=== PATIENT | female | born 1940 | race Caucasian/White ===

== ENCOUNTER 2016-07-01 12:27 | Day surgery (SDC) | payer MEDICARE, BC ==
[~2016-07-01] VITALS: Ht 162.7 cm; Wt 72.7 kg
[2016-07-01] VITALS (8 sets, daily range): BP systolic 135–180; BP diastolic 57–78; PULSE 53–554; TEMP 97.9
[~2016-07-01 12:27] MED LIST: AMLODIPINE5 MG PO; ASPIRIN 32325 MG/TAB PO; ASPIRIN E.C. 8181 MG PO; CALCIUM 600MG+D1 TAB PO; CARDENE 20MG CA20 M1 PO; CYANOCOBAL1000 MCG/M IM; FLAGYL 250250 MG/TAB PO; FLONASE NASAL S16 GM NS; FOLIC ACID1 MG PO; FOSAMAX 35MG35 MG PO; FOSAMAX70 MG PO; GABAPENTIN300 MG PO; IMODIUM 2MG CAPS2 MG PO; LEVAQUIN 5500 MG/TA1 PO; LISINOPRIL10 MG PO; MAALOX1 TAB PO; METOPROLOL50 MG PO; NIACIN500 M3 PO; NIASPAN 500MG500 MG PO; NITROSTAT0.4 MG/TAB SL; NORCO 325 MG-51 TAB PO; OMEGA 31000 MG PO; OMEPRAZOLE D/R20 MG PO; PLAVIX 75MG TAB75 MG PO; PRAVACHOL 40MG40 MG PO; PRAVACHOL40 MG PO; QUESTRAN4 GM/9 GM PO; RANITIDINE75 MG PO; TYLENOL 500MG500 MG PO; VICODIN 5/5001 UDTAB PO; ZANTAC 150MG T150 MG PO; ZYRTEC10 MG PO; [UNRECOGNIZED DRUG - OTHER] NS; [UNRECOGNIZED DRUG - OTHER] PO
[2016-07-01 13:11] LABS: HEMOGLOBIN 15.9 g/dl (12.5-16.0); MEAN CELL VOLUME 99 fl (80.0-100.0); MEAN CORPUSCULAR HEMOGLOBIN 34 pg (27.0-31.0); MEAN CORPUSCULAR HGB CONC 35 g/dl (33.0-37.0); MEAN PLATELET VOLUME 10.1 fl (7.4-10.4); PLATELET COUNT 185 K/mm3 (130-400); RED BLOOD COUNT 4.64 M/mm3 (4.10-5.30); REDCELL DISTRIBUTION WIDTH-CV 13.2 % (11.5-14.5); WHITE BLOOD COUNT 5.7 K/mm3 (4.8-10.8)
[2016-07-01] MEDS ORDERED: BYSTOLIC10 MG PO (13:13)
[2016-07-01] MEDS ORDERED: ZESTRIL30 MG PO (13:14)
[2016-07-01] MEDS ORDERED: FOLIC ACID 11 MG/TA1 PO (13:15)
[2016-07-01] MEDS ORDERED: NEURONTIN300 MG/CAP PO (13:17)
[2016-07-01] MEDS ORDERED: NITROSTAT0.4 MG/TAB SL (13:19)
[2016-07-01] MEDS ORDERED: CATAPRES 0.1MG0.1 MG PO (13:21)
[2016-07-01] MEDS ORDERED: B-121000 MCG PO (13:24)
[2016-07-01] MEDS ORDERED: PROBIOTIC FORMU1 CAP PO (13:24)
[2016-07-01] MEDS ORDERED: VITAMIND3 5000 PO (13:27)
[2016-07-01] MEDS ORDERED: IMODIUM 2MG CAPS2 MG PO (13:27)
[2016-07-01 13:52] LABS: INR 1.1 (0.8-3.0); PROTHROMBIN TIME 12.3 SECONDS (9.7-12.8)
[2016-07-01 13:57] LABS: CALCIUM 10.3 mg/dL (8.4-10.2); CREATININE, serum 0.82 mg/dL (0.52-1.25); POTASSIUM 4.4 mmol/L (3.4-5.0)
== END 2016-07-01 18:40 | disposition home or self-care (01) ==
LOC: COL.CAR 12:27
PROVIDERS: Internal Medicine Interventional Cardiology
DX: I25.119 Atherosclerotic heart disease of native coronary artery with unspecified angina pectoris (principal); I44.0 Atrioventricular block, first degree; R06.02 Shortness of breath; I08.0 Rheumatic disorders of both mitral and aortic valves; I10 Essential (primary) hypertension; Z79.01 Long term (current) use of anticoagulants; Z95.1 Presence of aortocoronary bypass graft; Z95.5 Presence of coronary angioplasty implant and graft; Z87.891 Personal history of nicotine dependence
CPT/HCPCS: C1760; J2250; J3010; Q9967

== ENCOUNTER → 2017-02-03 | Outpatient (CLI) | payer MEDICARE, BC ==
[~2017-02-03] MED LIST changes: +B-121000 MCG PO; +BYSTOLIC10 MG PO; +CATAPRES 0.1MG0.1 MG PO; +FOLIC ACID 11 MG/TA1 PO; +NEURONTIN300 MG/CAP PO; +PROBIOTIC FORMU1 CAP PO; +VITAMIND3 5000 PO; +ZESTRIL30 MG PO
== END ==
LOC: MC.RAD 09:50
DX: Z12.31 Encounter for screening mammogram for malignant neoplasm of breast (principal); Z98.82 Breast implant status

== ENCOUNTER 2018-01-05 05:58 | Inpatient (IN) | payer MEDICARE, BC ==
[~2018-01-05] VITALS: Ht 162.6 cm; Wt 64.9 kg
[~2018-01-05 05:58] MED LIST changes: +LIPITOR 40MG TA40 MG PO; +LOPRESSOR 225 MG/TAB PO; +OMEGA-3 1000 MG1 CAP PO; +RANEXA 500MG T500 MG PO; +XARELTO20 MG PO
[2018-01-05 06:28] LABS: BASO % 0.2 % (0.0-2.0); EOS % 0.2 % (0-4.0); GRAN # 4.3 (1.4-6.5); HEMATOCRIT 39.1 % (37.0-47.0); HEMOGLOBIN 12.7 g/dl (12.5-16.0); LYMPH # 0.8 (1.2-3.4); LYMPH % 14.8 % (20.0-51.0); MEAN CELL VOLUME 111 fl (80.0-100.0); MEAN CORPUSCULAR HEMOGLOBIN 36 pg (27.0-31.0); MEAN CORPUSCULAR HGB CONC 33 g/dl (33.0-37.0); MEAN PLATELET VOLUME 11.8 fl (7.4-10.4); MONO # 0.4 (0.1-0.6); MONO % 7.3 % (1.7-9.3); PLATELET COUNT 112 K/mm3 (130-400); RED BLOOD COUNT 3.53 M/mm3 (4.10-5.30)
[2018-01-05 06:38] LABS: BILIRUBIN,TOTAL 0.8 mg/dL (0.0-1.0); CALCIUM 8.8 mg/dL (8.4-10.2); CREATININE, serum 0.64 mg/dL (0.52-1.25); POTASSIUM 3.4 mmol/L (3.4-5.0); TOTAL PROTEIN 7.8 gm/dL (6.4-8.2)
[2018-01-05 06:55] LABS: TROPONIN-I 0.071 ng/mL (0.000-0.034)
[2018-01-05] MEDS ORDERED: PRAVACHOL 20MG20 MG PO (06:55)
[2018-01-05] MEDS ORDERED: PRINIVIL10 MG PO (06:55)
[2018-01-05] MEDS ORDERED: PROAIR HFA0.09 MG/AC IH (06:56)
[2018-01-05] MEDS ORDERED: B-121000 MCG PO (06:56)
[2018-01-05] MEDS ORDERED: STIOLTO RESPIMAT4 GM IH (06:56)
[2018-01-05] MEDS ORDERED: TYLENOL 325MG325 MG PO (11:09)
[2018-01-05 11:41] VITALS: BP 142/71; PULSE 101; TEMP 98.5
[2018-01-05 15:14] LABS: INR 1.1 (0.8-3.0); PROTHROMBIN TIME 12.8 SECONDS (9.7-12.8)
[2018-01-05 15:16] LABS: PARTIAL THROMBOPLASTIN TIME 34.1 SECONDS (26.0-37.0)
== END 2018-01-05 16:39 | disposition short-term general hospital (02) | DRG 280 ==
LOC: COL.ER 05:58 → MEDICAL 07:24
PROVIDERS: Emergency Medicine; Hospitalist
DX: I21.4 Non-ST elevation (NSTEMI) myocardial infarction (principal); J96.21 Acute and chronic respiratory failure with hypoxia; I50.33 Acute on chronic diastolic (congestive) heart failure; I11.0 Hypertensive heart disease with heart failure; I35.0 Nonrheumatic aortic (valve) stenosis; I25.10 Atherosclerotic heart disease of native coronary artery without angina pectoris; Z95.1 Presence of aortocoronary bypass graft; Z95.5 Presence of coronary angioplasty implant and graft; I48.0 Paroxysmal atrial fibrillation; Z86.73 Personal history of transient ischemic attack (TIA), and cerebral infarction without residual deficits; E78.5 Hyperlipidemia, unspecified; Z87.891 Personal history of nicotine dependence; G62.9 Polyneuropathy, unspecified
CPT/HCPCS: 99222-AI; J1644; J1940

== ENCOUNTER → 2018-01-19 | Outpatient (CLI) | payer MEDICARE, BC ==
[~2018-01-19] MED LIST changes: +PRAVACHOL 20MG20 MG PO; +PRINIVIL10 MG PO; +PROAIR HFA0.09 MG/AC IH; +STIOLTO RESPIMAT4 GM IH; +TYLENOL 325MG325 MG PO
== END ==
LOC: COL.RAD 12:36
DX: R93.2 Abnormal findings on diagnostic imaging of liver and biliary tract (principal); R59.0 Localized enlarged lymph nodes; Z90.710 Acquired absence of both cervix and uterus
CPT/HCPCS: Q9967

== ENCOUNTER 2018-05-21 10:14 | Day surgery (SDC) | payer MEDICARE, BC ==
[2018-05-21] VITALS (7 sets, daily range): BP systolic 113–146; BP diastolic 57–77; PULSE 62–78
[~2018-05-21] VITALS: Ht 161.3 cm; Wt 60.0 kg
[~2018-05-21 10:14] MED LIST changes: +K-DUR20 MEQ PO; +LASIX 20MG TABL20 MG PO
[2018-05-21] MEDS ORDERED: XARELTO20 MG PO (10:50)
[2018-05-21] MEDS ORDERED: TENORMIN 2525 MG/TAB PO (10:51)
[2018-05-21] MEDS ORDERED: ZANTAC 7575 MG PO (10:52)
[2018-05-21] MEDS ORDERED: ZOFRAN 4MG T4 MG/TAB PO (10:56)
[2018-05-21 11:37] LABS: POTASSIUM 4.4 mmol/L (3.4-5.0)
[2018-05-21 11:43] LABS: INR 2.7 (0.8-3.0); PROTHROMBIN TIME 30.9 SECONDS (9.7-12.8)
[2018-05-21 12:12] LABS: THYROID STIMULATING HORMONE 1.48 uIU/mL (0.465-4.680)
--- NOTE | 2018-05-21 13:45 | NUR ---
PT IN ROOM 12 POST CARDIOVERSION WITH [facility]. ALL VITALS NOW STABLE, BP PREVIOUSLY LOW. CURRENTLY SUCKING ON ICE CHIPS.PT RESTING IN BED AT THIS TIME UNTIL DISCHARGE.
[2018-05-21] MEDS ORDERED: PACERONE400 MG PO (14:05)
--- NOTE | 2018-05-21 14:45 | NUR ---
PT VSS AND [id number] POST CARDIOVERSION WITH [facility]. TOLERATING FLUIDS PO WITHOUT ISSUE. IV REMOVED FROM RIGHT WRIST. DISCHARGE INSTRUCTIONS REVIEWED AND SIGNED. PT WHEELED OUT SAFELY VIA WHEELCHAIR WHERE WAS PRESENT RIGGER HELPER.
== END 2018-05-21 14:45 | disposition home or self-care (01) ==
LOC: COL.CAR 10:14
PROVIDERS: Internal Medicine Interventional Cardiology
DX: I48.91 Unspecified atrial fibrillation (principal); I25.10 Atherosclerotic heart disease of native coronary artery without angina pectoris; C22.9 Malignant neoplasm of liver, not specified as primary or secondary; I73.9 Peripheral vascular disease, unspecified; I25.2 Old myocardial infarction; I11.0 Hypertensive heart disease with heart failure; I50.9 Heart failure, unspecified; J44.9 Chronic obstructive pulmonary disease, unspecified; K75.9 Inflammatory liver disease, unspecified; I08.1 Rheumatic disorders of both mitral and tricuspid valves; Z79.02 Long term (current) use of antithrombotics/antiplatelets; Z79.01 Long term (current) use of anticoagulants; Z79.51 Long term (current) use of inhaled steroids; Z90.710 Acquired absence of both cervix and uterus; Z95.1 Presence of aortocoronary bypass graft; Z98.61 Coronary angioplasty status; Z87.891 Personal history of nicotine dependence; Z86.73 Personal history of transient ischemic attack (TIA), and cerebral infarction without residual deficits; Z85.828 Personal history of other malignant neoplasm of skin; Z82.49 Family history of ischemic heart disease and other diseases of the circulatory system
CPT/HCPCS: J2704; J7030

== ENCOUNTER → 2018-06-23 | Outpatient (CLI) | payer MEDICARE, BC ==
[~2018-06-23] MED LIST changes: +PACERONE400 MG PO; +TENORMIN 2525 MG/TAB PO; +ZANTAC 7575 MG PO; +ZOFRAN 4MG T4 MG/TAB PO
== END ==
LOC: MC.RAD 08:41
DX: Z12.31 Encounter for screening mammogram for malignant neoplasm of breast (principal)

== ENCOUNTER → 2018-07-13 | Outpatient (CLI) | payer MEDICARE, BC | LOC: COL.RAD 08:04 | DX: C22.0 Liver cell carcinoma (principal); I82.0 Budd-Chiari syndrome; I81 Portal vein thrombosis; K80.20 Calculus of gallbladder without cholecystitis without obstruction; K82.8 Other specified diseases of gallbladder; Z92.3 Personal history of irradiation | CPT/HCPCS: A9585 ==

== ENCOUNTER 2018-09-01 14:07 | Emergency (ER) | payer MEDICARE, BC ==
[~2018-09-01] VITALS: Ht 162.6 cm; Wt 58.6 kg
[2018-09-01 14:41] VITALS: BP 120/59; PULSE 70; TEMP 96.8
== END 2018-09-01 18:25 | disposition home or self-care (01) ==
LOC: COL.ER 14:07
DX: R04.0 Epistaxis (principal); E78.5 Hyperlipidemia, unspecified; I10 Essential (primary) hypertension; I48.91 Unspecified atrial fibrillation; I25.10 Atherosclerotic heart disease of native coronary artery without angina pectoris; Z86.73 Personal history of transient ischemic attack (TIA), and cerebral infarction without residual deficits

== ENCOUNTER 2018-09-13 21:20 | Inpatient (IN) | payer MEDICARE, BC ==
[~2018-09-13] VITALS: Ht 165.1 cm; Wt 63.6 kg
[2018-09-14] VITALS (7 sets, daily range): BP systolic 95–130; BP diastolic 38–41; PULSE 67–87; TEMP 97.4–98.2
[2018-09-14] MEDS ORDERED: TYLENOL 500MG500 MG PO (00:43)
[2018-09-14] MEDS ORDERED: PRAVACHOL 40MG40 MG PO (00:46)
--- NOTE | 2018-09-14 01:00 | NUR ---
Transferred medical floor from [facility] ER via EMS- dx; AMS, syncope, increased troponins, alert/partially oriented, just confused as to year?, bed alarm on- understands cannot get up without assistance- Up to bathroom with nurses help- did well, steady on feet, IV fluids of NS at 75cc/hr, Elly TIGHT BARREL INSPECTOR writing orders, unable to get an accurate medication list from home- pt does not know dosages, Elly put in for pharmacy to get an accurate list-- pt states having back pain, will give Tylenol when order is put in by Elly
[2018-09-14] MEDS ORDERED: NORCO 325 MG-51 TAB PO (01:14)
[2018-09-14] MEDS ORDERED: CORDARONE200 MG/TAB PO (01:14)
--- NOTE | 2018-09-14 02:00 | NUR ---
Elly OLIVAREZ called with Troponin of 0.071- she talked with the public relations specialist and orders for NPO at this time.
--- NOTE | 2018-09-14 04:55 | NUR ---
Has been sleeping fairly well since Tylenol was given earlier, Ok to DC SCD,s per Elly OIL TANK CAR CLEANER since pt on Xerelto and Plavix- NPO per cardiology- Denies chest pain/SOB, oriented, forgetful at times -
[2018-09-14 06:21] LABS: MEAN CELL VOLUME 113 fl (80.0-100.0); MEAN CORPUSCULAR HGB CONC 32 g/dl (33.0-37.0); MEAN PLATELET VOLUME 10.6 fl (7.4-10.4); PLATELET COUNT 77 K/mm3 (130-400); RED BLOOD COUNT 2.06 M/mm3 (4.10-5.30); REDCELL DISTRIBUTION WIDTH-CV 16.8 % (11.5-14.5)
[2018-09-14 06:33] LABS: ALBUMIN 2.7 gm/dL (3.5-5.0); BILIRUBIN,TOTAL 0.5 mg/dL (0.0-1.0); CALCIUM 7.9 mg/dL (8.4-10.2); CREATININE, serum 0.85 (0.52-1.25); POTASSIUM 4.2 mmol/L (3.4-5.0); TOTAL PROTEIN 5.7 gm/dL (6.4-8.2)
[2018-09-14 06:35] LABS: HEMATOCRIT 23.3 % (37.0-47.0); HEMOGLOBIN 7.4 g/dl (12.5-16.0); MEAN CORPUSCULAR HEMOGLOBIN 36 pg (27.0-31.0)
[2018-09-14 06:50] LABS: TROPONIN-I 6 HR POST INITIAL 0.066 ng/mL (0.000-0.034)
--- NOTE | 2018-09-14 07:30 | NUR ---
PATIENT IS ORIENTED X2 BUT DISPLAYS OCCATIONAL FORGETFULNESS AND NEEDS REMINDING OF PREVIOUS CONVERSTATIONS AND ACTIVITIES. PATIENT CONTINUES TO REPORT WEAKNESS AND SOME MILD DISCOMFORT IN RIGHT LOWER BACK. PT/OT WORKING WITH PATIENT. TROP TRENDING DOWN TO 0.066 TODAY. PATIENT DENIES CHEST PAIN OR SOB. VSS. TELE INPLACE. CARDS CONSULTED, WAITING FOR THEM TO ROUND. ECHO SCHEDULED FOR THIS AM. PATIENT CURRENTLY NPO. IV FLUIDS INFUSING VIA PUMP INTO LEFT AC IV. HEAD TO TOE ASSESSMENT COMPLETE. [facility] TURPENTINE DISTILLER REPORTED FAMILY WAS CONCERNED PATIENT HAS BEEN TAKING A LOT OF HER PRESCRIPTION PAIN MEDS. PATIENT NOT FAMILIAR WITH MEDICATION DOSES AND DURING CONVERSATION KEPT SAYS SHE DOESN'T TAKE AMIODARONE. HOWEVER GAVE STAFF A LIST THAT HAD AMIODARONE LISTED. PATIENT FORGETFUL AND SEEMS NON-COMPLIENT WITH MANY OF HER HOME MEDS WHEN ASKED WHEN SHE LAST TOOK THEM. AWAITING MEDICATION FAX FROM HER PHARMACY.
[2018-09-14 07:33] LABS: BAND 2 % (0-10); LYMPHOCYTE 8 % (20.0-51.0); NEUTROPHILS 81 % (42.0-75.2); PLATELET ESTIMATE DECREASED (NORMAL)
[2018-09-14 07:34] LABS: ANISOCYTOSIS 1+; HYPOCHROMIA 2+
--- NOTE | 2018-09-14 08:00 | NUR ---
ECHO AT BEDSIDE
[2018-09-14] MEDS ORDERED: NORVASC 5MG5 MG/TAB PO (09:36)
[2018-09-14] MEDS ORDERED: NORVASC2.5 MG PO (09:36)
[2018-09-14] MEDS ORDERED: ROXICODONE 55 MG/TAB PO (09:37)
--- NOTE | 2018-09-14 12:00 | NUR ---
CARDIOLOGY AT BEDSIDE. SEE ORDERS.
--- NOTE | 2018-09-14 14:00 | NUR ---
LAB CALLED ABOUT PENDING UNIT OF BLOOD ORDERED. LAB HAS BEEN UNABLE TO GET TYPE & SCREEN. ANOTHER CUSTOMER SOLUTIONS SUPERVISOR ON THEIR WAY UP TO TRY AND DRAW AGAIN.
--- NOTE | 2018-09-14 14:35 | NUR ---
CALLED GI CONSULT
--- NOTE | 2018-09-14 14:40 | NUR ---
UA & STOOL SAMPLES NOW COLLECTED AND SENT TO LAB
--- NOTE | 2018-09-14 14:49 | NUR ---
SW attended clinical rounds. Patient lives independently at home with her . Patient's PCP is Dr Ortez and she obtains prescriptions from [facility] pharmacy in [place]. Patient does not report DME or home health services used. SW will continue to follow and assist with any discharge needs.
[2018-09-14 16:13] LABS: HEMATOCRIT 23.2 % (37.0-47.0); HEMOGLOBIN 7.5 g/dl (12.5-16.0)
--- NOTE | 2018-09-14 16:35 | NUR ---
STARTING BLOOD TRANSFUSION PER ORDERS.
[2018-09-14] MEDS ORDERED: CBD OIL TOP (16:43)
[2018-09-14] MEDS ORDERED: [UNRECOGNIZED DRUG - OTHER] PO (16:45)
--- NOTE | 2018-09-14 19:40 | NUR ---
Shift assessment complete. Pt resting in bed, awake, a&o c int forgetfull statements et underlying confusion. Pt remains able to express needs et is cooperative c cares. Blood transfusion complete s s/s reaction. Lido patch removed earlier et pt now c/o increased back pain, rated "9/10", scheduled APAP recently admin, [place] admin per pt req et reinforced teaching r/t addiction et minimizing the use of narcotic medications, pt agreable. Pt denies any other c/o. IV patent. Tele in place. Pt denies further needs. Call light in reach, bed alarm on. Will continue to monitor.
[2018-09-15] VITALS (11 sets, daily range): BP systolic 94–137; BP diastolic 36–57; PULSE 70–85; TEMP 97.4–99
[2018-09-15 06:07] LABS: MEAN CORPUSCULAR HGB CONC 32 g/dl (33.0-37.0); MEAN PLATELET VOLUME 11.3 fl (7.4-10.4); PLATELET COUNT 76 K/mm3 (130-400); RED BLOOD COUNT 2.26 M/mm3 (4.10-5.30); RETIC # 0.08 M/mm3 (0.02-0.16); RETIC % 3.6 % (0.5-3.52)
[2018-09-15 06:17] LABS: HEMATOCRIT 24.4 % (37.0-47.0); HEMOGLOBIN 7.8 g/dl (12.5-16.0); MEAN CORPUSCULAR HEMOGLOBIN 35 pg (27.0-31.0)
[2018-09-15 06:18] LABS: MEAN CELL VOLUME 108 fl (80.0-100.0)
[2018-09-15 06:19] LABS: ALBUMIN 2.6 gm/dL (3.5-5.0); BILIRUBIN,TOTAL 0.6 mg/dL (0.0-1.0); CALCIUM 8.1 mg/dL (8.4-10.2); CREATININE, serum 0.66 (0.52-1.25); POTASSIUM 4.1 mmol/L (3.4-5.0); TOTAL PROTEIN 5.6 gm/dL (6.4-8.2)
[2018-09-15 06:30] LABS: IRON,SERUM 40 ug/dL (35-150)
[2018-09-15 06:39] LABS: TOTAL IRON BINDING CAPACITY 318 ug/dL (265-497)
[2018-09-15 07:04] LABS: FERRITIN 116 ng/mL (11-264)
--- NOTE | 2018-09-15 07:31 | NUR ---
Pt down for EGD at this time.
[2018-09-15 07:40] LABS: BAND 10 % (0-10); LYMPHOCYTE 11 % (20.0-51.0); NEUTROPHILS 75 % (42.0-75.2); PLATELET ESTIMATE DECREASED (NORMAL)
--- NOTE | 2018-09-15 08:30 | NUR ---
Pt back from EGD at this time. Pt denies pain, POC discussed with patient who verbalizes understanding. Will continue to monitor.
--- NOTE | 2018-09-15 09:30 | NUR ---
Pt left for CT scan at this time.
[2018-09-15 10:04] LABS: INR 1.1 (0.8-3.0); PROTHROMBIN TIME 12.6 SECONDS (9.7-12.8)
--- NOTE | 2018-09-15 11:04 | NUR ---
Pt assessment complete. Pt is sitting in her chair at this time. POC discussed with patient who would like to eat. She reports RUQ pain at this time. No N/V. Pt reporting she wants to go home. No SOB reported. Pt up to restroom with SBA, ambulated well. IVF infusing without complications. Call light within reach, family at bedside.
[2018-09-15 16:21] LABS: FOLATE (FOLIC ACID) 14.8 ng/mL (7.0-31.4)
[2018-09-16 01:25] VITALS: BP 153/59; PULSE 92; TEMP 98.3
[2018-09-16 04:35] VITALS: BP 116/46; PULSE 84; TEMP 98.3
[2018-09-16 07:25] LABS: GRAN # 3.8 (1.4-6.5); GRAN % 76.6 % (42.2-75.2); LYMPH # 0.6 (1.2-3.4); LYMPH % 12.6 % (20.0-51.0); MEAN CELL VOLUME 108 fl (80.0-100.0); MEAN CORPUSCULAR HGB CONC 32 g/dl (33.0-37.0); MONO # 0.5 (0.1-0.6); MONO % 10.4 % (1.7-9.3); PLATELET COUNT 94 K/mm3 (130-400); RED BLOOD COUNT 2.53 M/mm3 (4.10-5.30); REDCELL DISTRIBUTION WIDTH-CV 19.7 % (11.5-14.5)
[2018-09-16 07:26] LABS: HEMATOCRIT 27.3 % (37.0-47.0); HEMOGLOBIN 8.8 g/dl (12.5-16.0); MEAN CORPUSCULAR HEMOGLOBIN 35 pg (27.0-31.0)
--- NOTE | 2018-09-16 07:28 | NUR ---
patient is going down for Colonoscopy at this time
[2018-09-16 07:32] LABS: ALBUMIN 2.9 gm/dL (3.5-5.0); BILIRUBIN,TOTAL 0.7 mg/dL (0.0-1.0); CALCIUM 8.4 mg/dL (8.4-10.2); CREATININE, serum 0.62 (0.52-1.25); POTASSIUM 3.6 mmol/L (3.4-5.0); TOTAL PROTEIN 6.1 gm/dL (6.4-8.2)
--- NOTE | 2018-09-16 07:40 | NUR ---
PT WAS STARTING HER COLON PREP AT THE BEGINNING OF THE SHIFT. SHE HAD ALREADY HAS SOME TAKEN. ON A CLEAR LIQUID DIET UNTIL MIDNIGHT. LR INFUSING AT 75ML/HR IN L AC. HAS LIDODERM PATCH TO RIGHT FLANK. 2029 PT GETTING UP TO BSC EXPELLING DARK LIQUID BM. CONTINUES TO DRINK THE PREP. UP SEVERAL TIMES TO BSC. TOOK EVENING MED AND THEN WAS MADE NPO. SCHEDULED TYLENOL 650MG GIVEN. 0600 IVF CHANGED TO NS AT 30ML/HR WITH DIAL A FLOW FOR SCOPE. END OF SHIFT REPORT GIVEN TO OSIRIS TRONCOSO.
[2018-09-16 08:25] VITALS: BP 131/49; PULSE 78; TEMP 98
--- NOTE | 2018-09-16 08:36 | NUR ---
Assessment completed, alert/oriented, vital signs stable, patient just returned to the Medical floor from Endoscopy, no bleeding source noted and GI said she can be discharged from their standpoint, abdomen soft and non-tender, BS + and she reports she is hungry, heart RRR, lungs CTA/ no resp.difficulty, patient is eager to be discharged home today, I will discuss her plan of care with the hospitalist
[2018-09-16 09:00] VITALS: BP 139/50; PULSE 75
[2018-09-16 09:30] VITALS: BP 146/55; PULSE 76
--- NOTE | 2018-09-16 09:37 | NUR ---
discharge instructions reviewed with the patient, insturcted to follow up with PCP/GI/Cardiolgoy/Oncology as scheduled, instructed to continue home meds as ordered/ some med stopped or changed, no new meds prescribed, IV and tele removed, present, they will go straight to radiology for outpatient MRI/CT that was ordered by
== END 2018-09-16 11:04 | disposition home or self-care (01) | DRG 378 ==
LOC: MEDICAL 21:20
PROVIDERS: Internal Medicine Gastroenterology; Nurse Practitioner; Physician Assistant; ADMIT Family Medicine
PROC: 0DBK8ZX Excision of Ascending Colon, Via Natural or Artificial Opening Endoscopic, Diagnostic (ICD-10-PCS; 2018-09-15)
PROC: 0DBM8ZX Excision of Descending Colon, Via Natural or Artificial Opening Endoscopic, Diagnostic (ICD-10-PCS; 2018-09-15)
PROC: 0DJ08ZZ Inspection of Upper Intestinal Tract, Via Natural or Artificial Opening Endoscopic (ICD-10-PCS; principal; 2018-09-15 07:30)
DX: K92.1 Melena (principal); C22.7 Other specified carcinomas of liver; I50.32 Chronic diastolic (congestive) heart failure; N39.0 Urinary tract infection, site not specified; D62 Acute posthemorrhagic anemia; D53.9 Nutritional anemia, unspecified; I25.10 Atherosclerotic heart disease of native coronary artery without angina pectoris; Z95.1 Presence of aortocoronary bypass graft; Z95.5 Presence of coronary angioplasty implant and graft; E78.5 Hyperlipidemia, unspecified; I48.0 Paroxysmal atrial fibrillation; Z79.01 Long term (current) use of anticoagulants; Z86.73 Personal history of transient ischemic attack (TIA), and cerebral infarction without residual deficits; I35.0 Nonrheumatic aortic (valve) stenosis; D69.6 Thrombocytopenia, unspecified; R55 Syncope and collapse; R63.4 Abnormal weight loss; I95.9 Hypotension, unspecified; I11.0 Hypertensive heart disease with heart failure; D12.2 Benign neoplasm of ascending colon; D12.4 Benign neoplasm of descending colon; K64.0 First degree hemorrhoids; K57.30 Diverticulosis of large intestine without perforation or abscess without bleeding
CPT/HCPCS: 99223-AI; 99232-AI; 99239; A4216; C9113; J0696; J2704; J2765; J7030; J7120; P9040; Q9967

== ENCOUNTER → 2018-09-16 | Outpatient (CLI) | payer MEDICARE, BC ==
[~2018-09-16] MED LIST changes: +CBD OIL TOP; +CORDARONE200 MG/TAB PO; +NORVASC 5MG5 MG/TAB PO; +NORVASC2.5 MG PO; +ROXICODONE 55 MG/TAB PO; +[UNRECOGNIZED DRUG - OTHER] PO
== END ==
LOC: COL.RAD 11:41
DX: C22.0 Liver cell carcinoma (principal); J98.4 Other disorders of lung; J43.9 Emphysema, unspecified; I25.10 Atherosclerotic heart disease of native coronary artery without angina pectoris; Z95.1 Presence of aortocoronary bypass graft; Z98.890 Other specified postprocedural states; R91.8 Other nonspecific abnormal finding of lung field
CPT/HCPCS: A9585; Q9967